=== PATIENT | male | born 1965 | race Caucasian/White ===

== ENCOUNTER 2018-09-29 06:29 | Emergency (ER) | payer OTHER, SELFPAY ==
[2018-09-29 06:31] VITALS: BP 133/90; PULSE 73; RESP 18; TEMP 35.6; O2SAT 100; BMI 27.0
--- NOTE | 2018-09-29 06:50 | ED.DCSUM_ITS ---
- ER Visit Summary Date of Service: 09/29/18 Chief Complaint: Back pain History of Present Illness: The patient is a 52 M who presents with left lower back pain that has been getting worse over the past 4 days. Patient denies any specific trauma or injury. Patient denies any bowel or bladder changes. Pat svitlanant denies any saddle anesthesia. Patient does admit to some pain radiating down his left leg and some tingling. Patient denies any weakness. Patient states the pain is worse with ambulation and with laying flat. Patient states she has been taking Aleve with no relief. Physical Examination: Vital signs are stable. Patient is afebrile. Patient is in no acute distress. Musculoskeletal exam reveals tenderness over the left lower lumbar paraspinal muscles. There is tenderness over the sciatic notch. There is no bony crepitance or step-off. There is no midline tenderness. Range of motion was limited in all motions of the lumbar spine secondary to pain. Strength is 5/5 bilaterally in lower extremities. There are no sensory deficits noted. Deep tendon reflexes are 2+/4 bilaterally. Emergency Department Course and Treatment: Patient was given prescriptions for meloxicam and Valium. Patient was instructed to use ice to the area. Patient was instructed to follow-up with his primary care physician in 3 to 5 days. Patient understood and was agreeable with the plan. All questions were answered. Disposition: Discharge home Impression: Sciatica This note was generated with [employer] dictation software. It may contain incorrect words, spelling, and punctuation that were not noted in review of the chart prior to signing ED Disposition - Plan for ED Patient: Disposition: Home or Assisted Living Diagnosis: Sciatica of left side Instructions: BACK PAIN w/ SCIATICA Prescriptions: Meloxicam 15 mg PO DAILY PRN PRN #20 tab PRN Reason: Pain Transmission Status: Pending to [id number] Diazepam [Valium] 5 mg PO Q8 PRN #10 tablet PRN Reason: Muscle Spasm Transmission Status: Received by [facility]/pharmacy #[id number] Referrals: Justin Navarro III, MD [Primary Care Provider] - 3-5 Days
== END 2018-09-29 07:26 | disposition home or self-care (01) ==
PROVIDERS: Emergency Provider Emergency Medicine; Family Provider Family Medicine; PCP Family Medicine
DX: M54.42 Lumbago with sciatica, left side (principal); Z79.899 Other long term (current) drug therapy
CPT/HCPCS: 99282

== ENCOUNTER 2019-06-09 14:35 | Emergency (ER) | payer OTHER, SELFPAY ==
[2019-06-09 14:36] VITALS: BP 151/88; PULSE 82; RESP 20; TEMP 36.1; O2SAT 100; BMI 28.3
--- NOTE | 2019-06-09 15:11 | ED.DCSUM_ITS ---
History of Present Illness Chief Complaint: Nausea/Vomiting/Diarrhea Detail of Chief Complaint: general illness Informant: Patient Onset: Weeks - 1 Context: Gradual Onset Timing: Continuous Quality: malaise, et al -- see below Location: generalized Current Severity: Severe Maximum Severity: Severe Worsened by: - - nothing Relieved by: - - nothing Associated Symptoms: Headache - gone at this time, Nonproductive cough, - - diarrhea, mild and nonbloody. 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 He has had no known definite exposure with that or other illness. He has been going to work, however. He states he has called his doctor's office several times and says that they told him to come to the ER, but thinks they also put an order in for the COVID test, but states that he feels too bad to get to [place] for it. He has been feeling very malaised. He states he is so out of energy that he cannot walk very far, however he does not get dyspneic with exertion and has not experienced chest symptoms. Patient presents during the national coronavirus emergency/global pandemic, just after [place] started making plans to open businesses, but he has been working because his business has been deemed essential. - Past Medical History (1) Hyperlipidemia Status: Chronic Past Medical History - Allergies and Home Meds Allergies/Adverse Reactions: Allergies Penicillins Adverse Reaction (Verified 06/09/19 14:36) [facility] Primary Care Physician: Justin Navarro III, MD [Primary Care Provider] - 1-2 Days if not improving (or return to ER if feeling worse, especially if short of breath, or if your oxygen levels go below 91%, if you are able to check it at home) Smoking Status: Never smoker Review of Systems General: Reports: Chills, Malaise. Denies: Fever, Sweats Eyes: Denies: Visual changes - bilaterally, Diplopia ENT: Denies: Bilateral ear pain, Rhinorrhea, Sore throat Cardiovascular: Denies: Chest pain, Palpitations Respiratory: Reports: Cough. Denies: Dyspnea, Sputum, Dyspnea on exertion, Orthopnea Gastrointestinal: Reports: Diarrhea. Denies: Abdominal pain, Nausea, Vomiting, Melena, Hematochezia Genitourinary: Denies: Dysuria, Hematuria, Frequency Musculoskeletal: Denies: Neck pain, Back pain, Swelling, Extremity Pain Skin: Denies: Rash, Wounds Neurological: Reports: Headache. Denies: Weakness - nothing focal, neurologically, Numbness Psych: Reports: Anxiety - I'm nervous that I have COVID. Denies: Suicidal thoughts Endocrine: Denies: Polyuria, Polydipsia Hematologic: Denies: Easy bruising, Easy bleeding, Lymphadenopathy Physical Exam Vital Signs/Narrative: Vital Signs Temp Pulse Resp BP Pulse Ox 06/09/19 14:36 97 F L 82 20 H 151/88 H 100 Inital Vital Signs reviewed: Yes General: Well nourished, Well developed, - - NAD Head: Normocephalic, Atraumatic. Negative for: Sinus Tenderness Eyes: Perrl, EOMI Ears: Normal external canal, TM's clear Nose: Normal Inspection, No Rhinorrhea Mouth/Throat: Normal Inspection, No Posterior Erythema, Airway Patent Neck: Supple, Nontender, No Lymphadenopathy, No Meningismus Cardiovascular: Regular rate, Regular rhythm, No murmurs. Negative for: Tachycardia Respiratory: No distress, CTA bilaterally, Chest nontender Abdomen: Soft, Nontender, Nondistended, Normal bowel sounds Back: Nontender, Normal Inspection. Negative for: CVA tenderness Extremities: Nontender, No edema. Negative for: Calf Tenderness Skin: Normal color, No rash, No Trauma Neurological: Alert, Oriented x3, Cranial nerves II-XII grossly intact, Normal Strength, Normal Sensation, Normal Gait Psychological: - - very anxious Diagnostic/Tx/Re-eval Impressions Chest X-Ray 06/09/19 15:30 IMPRESSION: Findings suggestive of linear atelectasis at the lung bases. Electronically Signed: Ronald Richard, at 16:03 EDT , Service support , 06/09/19 15:30 Chest 1 View (Portable) [RAD] Stat 06/09/19 15:25 Mucosa - Nasopharyngeal Influenza Types A,B Direct FA ([facility]) - Final Laboratory Results 06/09/19 06/09/19 06/09/19 15:40 15:40 15:54 WBC 5.3 RBC 5.10 Hgb 15.4 Hct 44.4 MCV 87.1 MCH 30.2 MCHC 34.7 RDW Std Deviation 41.3 RDW Coeff of Anabell 13.0 Plt Count 198 MPV 10.3 Immature Gran % (Auto) 0.400 Neut % (Auto) 51.7 Lymph % (Auto) 39.2 [place] % (Auto) 8.1 Eos % (Auto) 0.4 Baso % (Auto) 0.2 Absolute Neuts (auto) 2.8 Absolute Lymphs (auto) 2.08 Nucleated RBC % 0 Sodium 136 Potassium 3.9 Chloride 105 Carbon Dioxide 24.0 Anion Gap 7 BUN 9 Creatinine 1.02 Estim Creat Clear Calc 79.17 Est GFR (MDRD) Af Amer 97 Est GFR (MDRD) Non-Af 80 BUN/Creatinine Ratio 8.8 L Glucose 91 Calcium 8.4 L Troponin I < 0.015 Urine Color Yellow Urine Clarity Sl. Cloudy Urine pH 7.0 Ur Specific [place] 1.005 Urine Protein Negative Urine Glucose (UA) Normal Urine Ketones 5 H Urine Occult Blood Negative Urine Nitrite Negative Urine Bilirubin Negative Urine Urobilinogen Normal Ur Leukocyte Esterase Negative Urine RBC 0 SEEN Urine WBC 0 SEEN Ur Squamous Epith Cells 0-5 SEEN Urine Bacteria 0 SEEN Urine Mucus 0 SEEN - Medical Decision Making Work-up is very reassuring, however, most consistent with a coronavirus/COVID-19 infection given his low-normal white blood count, lack of a left shift, and symptoms in context of a negative influenza test. Luckily, at this time his chest x-ray shows no acute findings of infection, and his pulse oximetry is 100% on room air. The rest of his vital signs are reassuring as well. I discussed all this with the patient, in addition to the fact that I do suspect that he has the infection. I called the [facility] laboratory, as we still need permission on every patient to obtain testing given limited testing specimens and swabs, and the fact that our facility does not have the capability of performing testing onsite at this time. At this time, he does not meet criteria for testing at the [facility] lab. I discussed with the patient's PCP Dr. Navarro, he states that at [facility] they do have the ability to test on site, but they are strictly using the criteria laid out by the [place] Department of Health and so will not approve testing for him either. I apologized to the patient that I am not able to obtain an outpatient test for him at this time, nor does he meet criteria to be admitted at this time, but reassured him that right now he appears to be tolerating the infection well from a physiologic/oxygenation standpoint, and is doing well enough to stay at home. I recommend quarantining himself away from family members, and not going back to work. We discussed reasons to return to the hospital including dyspnea which he does not have right now. I also advised to try to secure a small finger pulse oximeter that is obtainable on line if/where available, so that he could screen for hypoxemia since some patients have become hypoxic prior to becoming dyspneic. His PCP was in agreement with this plan, and currently in [place], infectious disease does not recommend or allow outpatient treatment with a azithromycin or Plaquenil in this patient's case and being a stable outpatient. I discussed that with the patient as well. At this time all questions at the [facility] were answered and he is comfortable going home. ED Disposition - Plan for ED Patient: Disposition: Home or Assisted Living Diagnosis: Suspected COVID-19 virus infection Instructions: ED URI Viral Referrals: Justin Navarro III, MD [Primary Care Provider] - 1-2 Days if not improving (or return to ER if feeling worse, especially if short of breath, or if your oxygen levels go below 91%, if you are able to check it at home) Additional Instructions: Try to see if you can obtain/purchase a finger pulse oximeter, to check your pulse ox at home periodically/daily.
--- NOTE | 2019-06-09 15:30 | RAD_ITS ---
STUDY: X-RAY CHEST REASON FOR EXAM: Male, 53 years old. N/D, WILDE, NIGHT SWEATS BUT NO FEVER, COUGH X 1 WEEK. TECHNIQUE: Single AP portable view of the chest. COMPARISON: None. FINDINGS: Mild increased linear markings at the lung bases suggestive of a linear atelectasis. There is no demonstrated pleural abnormality. Normal size heart. Normal mediastinum and alan. Normal visualized pulmonary arteries. Normal visualized aortic arch and descending thoracic aorta. Normal visualized thoracic spine. Normal visualized ribs, clavicles, and shoulders. There is no demonstrated abnormality of the visualized soft tissue structures of the upper abdomen. RAD/Chest 1 View (Portable) IMPRESSION: Findings suggestive of linear atelectasis at the lung bases. Electronically Signed: Ronald Richard, at 16:03 EDT , Service support ,
[2019-06-09] MEDS: 0.9% Normal Saline 1,000 ML 999 ML IV (15:34)
[2019-06-09 15:44] LABS: Absolute Lymphocyte Count 2.08 X10^3/uL (0.83-4.51); Absolute Neutrophil Count 2.8 X10^3/uL (2.0-7.7); Basophil# 0.01 X10^3/uL; Basophil% 0.2 % (0-1); Eosinophil# 0.02 X10^3/uL; Eosinophils% 0.4 % (0-5); Hematocrit 44.4 % (40-54); Hemoglobin 15.4 g/dL (13.0-16.5); Lymphocyte # 2.08 X10^3/ul (4.0); Lymphocyte % 39.2 % (19-41); Mean Corp Hgb Conc 34.7 g/dL (32-36); Mean Corpuscular Hgb 30.2 pg (27.0-32.0); Mean Corpuscular Volume 87.1 fL (80-94); Mean Platelet Vol. 10.3 fl (6.2-12.0); Monocyte# 0.43 X10^3/uL; Monocyte% 8.1 % (0-10); NRBC Flagged by Analyzer 0 % (0-5); Neutrophil # 2.75 X10^3/uL (2.7-7.7); Neutrophil % 51.7 % (47-70); Platelet Count 198 K/mm3 (150-450); RBC Distribution Width SD 41.3 fl (35.1-43.9); White Blood Count 5.3 K/mm3 (4.4-11.0)
[2019-06-09 15:58] LABS: Bacteria 0 SEEN /hpf (None Seen); Mucous, Urine 0 SEEN /hpf (<or=2+); Red Blood Cells-Urine 0 SEEN /hpf (0-5); White Blood Cells 0 SEEN /hpf (0-5)
[2019-06-09 16:02] LABS: Color, Urine Yellow (Yellow); Glucose, Dipstick Normal (Normal); Ketone-Dipstick 5 mg/dl (Negative); Leukocyte Esterase-Dipstick Negative /ul (Negative); Nitrite-Dipstick Negative (Negative); Occult Blood-Urine Negative /ul (Negative); Protein-Dipstick Negative (Negative); Specific Gravity, Urine 1.005 (1.002-1.030); Urine Bilirubin Dipstick Negative (Negative); Urine Clarity Sl. Cloudy (Clear); Urine Urobilinogen Normal (Normal)
[2019-06-09 16:05] LABS: BUN 9 mg/dL (7-18); Creatinine, Serum 1.02 mg/dL (0.70-1.30); Estimated Creatinine Clearance 79.17 ml/min; Glucose 91 mg/dL (74-106)
[2019-06-09 16:06] LABS: Anion Gap 7 (5-15); BUN/Creat Ratio 8.8 RATIO (10-20); Calcium,Total 8.4 mg/dL (8.5-10.1); Chloride 105 mmol/L (98-107); EST Glomerular Filtration Rate 80 mL/min (>60); Est Glom Filt Rate - Afr Amer 97 mL/min (>60); Potassium 3.9 mmol/L (3.5-5.1); Sodium Level 136 mmol/L (136-145)
[2019-06-09 16:09] LABS: Squamous Epithelial Cells - UA 0-5 SEEN /hpf (0-5)
[2019-06-09 17:33] VITALS: RESP 18
== END 2019-06-09 17:36 | disposition home or self-care (01) ==
LOC: ED 17:14
PROVIDERS: Emergency Provider Emergency Medicine; PCP Family Medicine
DX: R11.2 Nausea with vomiting, unspecified (principal); R19.7 Diarrhea, unspecified; Z20.828 Contact with and (suspected) exposure to other viral communicable diseases; R53.81 Other malaise; E78.5 Hyperlipidemia, unspecified; Z88.0 Allergy status to penicillin
CPT/HCPCS: 71045; 80048; 81001; 84484; 85025; 87804; 96360; 99283; J7030; A4216

== ENCOUNTER 2019-06-11 01:32 | Emergency (ER) | payer OTHER, SELFPAY ==
[2019-06-11 01:33] VITALS: BP 109/76; PULSE 78; RESP 20; TEMP 37; O2SAT 96; BMI 28.1
[2019-06-11 01:36] VITALS: BP 109/76; PULSE 78; RESP 20; TEMP 37; O2SAT 96
--- NOTE | 2019-06-11 01:54 | ED.DCSUM_ITS ---
History of Present Illness Chief Complaint: Fever Detail of Chief Complaint: Multiple complaints Informant: Patient Current Severity: Moderate Maximum Severity: Moderate Narrative: Patient presents with nausea and diarrhea for the past week or so. 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 Patient was seen in the ER on the fourth with reassuring labs. Patient returns again today state he does not feel better and today developed a fever to 101. He does voices frustration that he is not feeling better when he has been sick for nearly 2 weeks. - Past Medical History (1) Hyperlipidemia Status: Chronic Past Medical History - Allergies and Home Meds Allergies/Adverse Reactions: Allergies Penicillins Adverse Reaction (Verified 06/09/19 14:36) Hives Primary Care Physician: Justin Navarro III, MD [Primary Care Provider] - 1 Week Prior records reviewed: Yes Lives: Spouse/ Significant Other Smoking Status: Former smoker Review of Systems General: Reports: Fever, Sweats Eyes: Denies: Visual changes - bilaterally ENT: Denies: Bilateral ear pain Cardiovascular: Denies: Chest pain, Palpitations Respiratory: Reports: Dyspnea. Denies: Cough - Mild shortness of breath Gastrointestinal: Reports: Nausea, Diarrhea. Denies: Abdominal pain, Vomiting Musculoskeletal: Reports: Myalgias Skin: Denies: Rash Neurological: Denies: Headache Hematologic: Denies: Easy bruising, Easy bleeding Allergy: Denies: Uticaria Physical Exam Vital Signs/Narrative: Vital Signs Temp Pulse Resp BP Pulse Ox 06/11/19 01:36 98.6 F 78 20 H 109/76 96 06/11/19 01:33 98.6 F 78 20 H 109/76 96 Inital Vital Signs reviewed: Yes General: Well nourished, Well developed Head: Normocephalic ENT: Moist mucous membranes Neck: Supple Cardiovascular: Regular rate, Regular rhythm Respiratory: No distress, CTA bilaterally Abdomen: Soft, Nontender, Normal bowel sounds Extremities: Nontender Skin: Normal color Neurological: Alert, Oriented x3 Psychological: - - Anxious Diagnostic/Tx/Re-eval Impressions Chest X-Ray 06/11/19 02:15 IMPRESSION: Interval development of bilateral pulmonary opacities suspicious for mild atypical/viral pneumonia. Electronically Signed: Tello Jett, at 2:32 EDT Tel , Service support , 06/11/19 02:15 Chest 1 View (Portable) [RAD] Stat Laboratory Results 06/11/19 06/11/19 02:05 02:05 WBC 5.5 RBC 4.83 Hgb 14.6 Hct 42.9 MCV 88.8 MCH 30.2 MCHC 34.0 RDW Std Deviation 42.8 RDW Coeff of Anabell 13.1 Plt Count 220 MPV 10.2 Immature Gran % (Auto) 0.500 Neut % (Auto) 54.0 Lymph % (Auto) 36.4 [place] % (Auto) 8.7 Eos % (Auto) 0.2 Baso % (Auto) 0.2 Absolute Neuts (auto) 3.0 Absolute Lymphs (auto) 2.01 Nucleated RBC % 0 Sodium 135 L Potassium 3.5 Chloride 106 Carbon Dioxide 23.0 Anion Gap 6 BUN 10 Creatinine 1.08 Estim Creat Clear Calc 74.77 Est GFR (MDRD) Af Amer 91 Est GFR (MDRD) Non-Af 75 BUN/Creatinine Ratio 9.3 L Glucose 100 Calcium 8.0 L - Medical Decision Making Patient was given Zofran to help with nausea and 15 mg of IV Toradol. On repeat evaluation nausea is improved. Patient's O2 sat is 94% at the time of my re- eval. Test results are discussed with him. I did advise him that his blood work is remaining normal, however his x-ray does show mild viral pneumonia at this time. I did discuss with him that his oxygen saturation is still within normal limits. I did encourage him to get a pulse ox for home to closely monitor his oxygen level. I do suspect the patient likely does have COVID-19. At this time he does not meet criteria for testing and testing at this time will not change our treatment. Patient will be given a prescription for Zofran to help with nausea at home. ED Disposition - Plan for ED Patient: Disposition: Home or Assisted Living Diagnosis: Viral pneumonia, Suspected COVID-19 virus infection Instructions: ED Viral Syndrome Prescriptions: Ondansetron [Zofran Odt] 4 mg PO Q8H PRN PRN #10 tab PRN Reason: Nausea Prescription Printed Referrals: Justin Navarro III, MD [Primary Care Provider] - 1 Week
[2019-06-11] MEDS: Ketorolac 15 MG/ML Vial IV (02:07)
[2019-06-11] MEDS: Ondansetron 4 MG/2 ML Vial IV (02:07)
--- NOTE | 2019-06-11 02:15 | RAD_ITS ---
STUDY: X-RAY CHEST REASON FOR EXAM: Male, 53 years old. Shortness of breath, fever, sweats and chills. TECHNIQUE: AP portable upright COMPARISON: 06/09/2019 at 4:33 PM FINDINGS: Interval development of peripheral groundglass densities in the mid and lower lungs bilaterally. No apparent consolidation, pneumothorax, or pleural effusion. Heart size normal. No concerning mediastinal or hilar lesions. No acute osseous abnormality. No evidence of free air under the diaphragm. RAD/Chest 1 View (Portable) IMPRESSION: Interval development of bilateral pulmonary opacities suspicious for mild atypical/viral pneumonia. Electronically Signed: Tello Jett, at 2:32 EDT Tel , Service support ,
[2019-06-11 02:21] LABS: Absolute Lymphocyte Count 2.01 X10^3/uL (0.83-4.51); Basophil# 0.01 X10^3/uL; Basophil% 0.2 % (0-1); Eosinophil# 0.01 X10^3/uL; Eosinophils% 0.2 % (0-5); Hematocrit 42.9 % (40-54); Hemoglobin 14.6 g/dL (13.0-16.5); Lymphocyte # 2.01 X10^3/ul (4.0); Lymphocyte % 36.4 % (19-41); Mean Corpuscular Hgb 30.2 pg (27.0-32.0); Mean Corpuscular Volume 88.8 fL (80-94); Mean Platelet Vol. 10.2 fl (6.2-12.0); Monocyte# 0.48 X10^3/uL; Monocyte% 8.7 % (0-10); NRBC Flagged by Analyzer 0 % (0-5); Neutrophil # 2.98 X10^3/uL (2.7-7.7); Platelet Count 220 K/mm3 (150-450); RBC Distribution Width CV 13.1 % (11.6-14.6); RBC Distribution Width SD 42.8 fl (35.1-43.9); Red Blood Count 4.83 M/mm3 (4.6-6.2); White Blood Count 5.5 K/mm3 (4.4-11.0)
[2019-06-11 02:30] VITALS: BP 93/68; PULSE 69; RESP 22; TEMP 37.1; O2SAT 93
[2019-06-11 02:32] LABS: Anion Gap 6 (5-15); BUN 10 mg/dL (7-18); BUN/Creat Ratio 9.3 RATIO (10-20); Chloride 106 mmol/L (98-107); Creatinine, Serum 1.08 mg/dL (0.70-1.30); EST Glomerular Filtration Rate 75 mL/min (>60); Est Glom Filt Rate - Afr Amer 91 mL/min (>60); Estimated Creatinine Clearance 74.77 ml/min; Glucose 100 mg/dL (74-106); Potassium 3.5 mmol/L (3.5-5.1); Sodium Level 135 mmol/L (136-145)
[2019-06-11 03:10] VITALS: BP 93/68; PULSE 71; RESP 18; TEMP 37.1; O2SAT 94
--- NOTE | 2019-06-11 03:19 | ED.RN ---
Offered to call and update her with discharge information and answer questions. PT said he would call her himself. Pending prescription from pharmacy.
== END 2019-06-11 03:20 | disposition home or self-care (01) ==
PROVIDERS: Emergency Provider Emergency Medicine; PCP Family Medicine
DX: J12.9 Viral pneumonia, unspecified (principal); R19.7 Diarrhea, unspecified; R11.0 Nausea; E78.5 Hyperlipidemia, unspecified; Z88.0 Allergy status to penicillin; Z87.891 Personal history of nicotine dependence
CPT/HCPCS: 71045; 80048; 85025; 96374; 96375; 99284; A4216; J2405

== ENCOUNTER 2020-11-28 17:11 | Inpatient (IN) | payer OTHER, SELFPAY ==
[2020-11-28 17:12] VITALS: BP 134/88; PULSE 104; RESP 20; TEMP 36.3; O2SAT 99; BMI 27.3
--- NOTE | 2020-11-28 17:29 | CT_ITS ---
EXAM: CT Abdomen and Pelvis With Intravenous Contrast CLINICAL INDICATION: 54 years old, Male; abdominal pain -- IV PO Contrast TECHNIQUE: Helically acquired images were obtained of the abdomen and pelvis with intravenous contrast. This CT exam was performed using one or more of the following dose reduction techniques: automated exposure control, adjustment of the mA and/or kV according to patient size, and/or use of iterative reconstruction technique. This report was created using [employer]™ Audio report generation technology. CONTRAST: Oral and amp; IV Gastrografin and amp; 100mL Isovue-300 COMPARISON: None. FINDINGS: Lower thorax: Linear atelectasis or fibrosis in the lung bases. No cardiomegaly. No significant pericardial effusion. ABDOMEN: Liver: Low attenuation foci in the liver some of which are due to cysts. Others are too small to characterize. Gallbladder and bile ducts: Unremarkable. No calcified gallstones. No gallbladder distention or wall edema. No intra- or extrahepatic biliary ductal dilation. Pancreas: Unremarkable. No focal cystic or solid mass. Spleen: Unremarkable. Normal size without focal cystic or solid mass. Adrenals: Unremarkable. No nodules. Kidneys and ureters: Unremarkable. Normal renal size and position. No hydronephrosis. Stomach and bowel: There is fluid in the colon suggesting diarrhea. Mucosal thickening in the ileum suggesting ileitis. This appears to be causing a partial mechanical obstruction of the small bowel with oral contrast seen only to the level of the mid ileum. Scattered diverticula in the colon. No diverticulitis. PELVIS: Appendix: Normal appendix. Bladder: Unremarkable. Reproductive: Unremarkable as visualized. No mass. ABDOMEN and PELVIS: Intraperitoneal space: Trace free fluid in the pelvis. No free air. Bones/joints: Unremarkable. No suspicious lytic or blastic abnormality. Soft tissues: Unremarkable. No discrete abdominal or pelvic wall hernia. Vasculature: Unremarkable. Abdominal aorta is non-dilated. Lymph nodes: Unremarkable. No enlarged lymph nodes. CT/Abdomen/Pelvis WITH Contrast IMPRESSION: 1. There is fluid in the colon suggesting diarrhea. 2. Mucosal thickening in the ileum suggesting ileitis. This appears to be causing a partial mechanical obstruction of the small bowel with oral contrast seen only to the level of the mid ileum. X-ray follow-up may be helpful. Electronically Signed: Antony Drake MD at 20:32 EDT Tel , Service support ,
--- NOTE | 2020-11-28 17:37 | EDS_ITS ---
HPI History of Present Illness Chief Complaint: Abd Pain Informant: patient and spouse/S.O. Narrative Narrative: 54-year-old male presented to the emergency department with abdominal and back pain. Patient states that he went to bed last night feeling okay. He woke around 4 this morning with a generalized mid to upper abdominal discomfort and some lower back discomfort. It was not that bad so he went and tried to do some chores. Patient notes he is developed chills and nausea and worsening pain. He states he feels bloated. He had several bowel movements today that have been formed. He denies any urinary symptoms. No prior surgeries. [facility] Medical History (Updated 11/28/20 @ 20:[address] Roge Cisneros DO) Hyperlipidemia Home Medications simvastatin 40 mg PO DAILY 09/29/18 [History Last Taken Unknown] Allergy/AdvReac Type Severity Reaction Status Date / Time Penicillins AdvReac Hives Verified 11/28/20 17:12 Surgical History no surgical history no surgical history Social History (Updated 11/28/20 @ 17:[address] Roge Cisneros DO) Smoking Status: Unknown if ever smoked substance use type: does not use ROS ROS ED Constitutional Constitutional ED: Reports chills; Denies fever(s) or weight loss Eyes Eyes: Denies change in vision or diplopia ENT ENT ED: Denies ear pain, rhinorrhea or sore throat Cardiovascular Cardiovascular: Denies chest pain, orthopnea, palpitations or racing heartbeat Respiratory/Chest Respiratory/Chest: Denies cough, dyspnea or orthopnea Gastrointestinal Gastrointestinal: Reports abdominal pain and nausea; Denies constipation, diarrhea or vomiting Genitourinary Genitourinary ED: Denies dysuria, hematuria or urinary frequency Musculoskeletal Musculoskeletal: Reports back pain; Denies arthralgias or myalgias Integumentary Denies abscess or rash Neurologic Neurologic: Denies headache(s) or weakness Psychiatric Psychiatric: Denies anxiety, depression, suicidal ideation or suicidal thoughts Endocrine Endocrinology: Denies polydipsia, polyphagia or polyuria Allergic/Immunologic Allergic/Immunologic ED: Denies mouth swelling, tongue swelling or urticaria EXAM Physical Exam Const Vital Signs: 11/28/20 17:12 11/28/20 19:14 Temperature 97.3 F L 99.9 F H Temperature Source Temporal Temporal Pulse Rate 104 H 86 Respiratory Rate 20 H 17 Blood Pressure 134/88 H 117/82 H Blood Pressure Mean 103 93 Pulse Ox 99 94 Oxygen Delivery Method Room Air Room Air Positive well nourished and well developed General Appearance ED: well developed HEENT Reports normocephalic, head/scalp atraumatic, TM's clear and moist mucous membranes Negative for trauma Tympanic Membrane ED: Yes TM's clear Eyes PERRL and EOMs intact bilaterally Neck no lymphadenopathy, supple and no JVD Resp normal respiratory effort and clear to auscultation bilaterally Cardio regular rate, regular rhythm and no murmurs GI non-tender Inspection: abdominal distention Auscultation: normoactive bowel sounds Palpation: soft and tender; Negative for guarding or rebound tenderness present Back/Spine no CVA tenderness and normal ROM Lumbar Spine / Lower Back: Negative for lumbar spinal tenderness Extremity normal to inspection General Extremety ED: Negative for edema General Extremity: Negative for edema Neuro oriented x3 and CN's II-XII intact bilaterally Sensorium / Orientation: alert Motor Exam: strength 5/5 throughout Psych mental status grossly normal Mood & Affect: Negative for depressed or tearful Skin no rashes or lesions noted and no wounds MDM MDM MDM Narrative Medical decision making narrative: Patient's white count 16.7. CMP essentially negative lipase [address] the abdomen pelvis with oral and IV contrast was obtained. This demonstrated fluid in the colon there is mucosal thickening in the ileum suggestive of ileitis. This appears to be causing a partial mechanical obstruction of the small bowel with oral contrast only seen to the level of the mid ileum. The stomach does appear to be swollen with a significant bout of food particles in it. Patient received IV fluids morphine and Zofran. Plan will be discussed with the hospitalist and admission. Lab Data Attestation: I reviewed the patient's lab results. Labs: Laboratory Results - last 24 hr 11/28/20 11/28/20 11/28/20 17:54 17:54 17:56 WBC 16.7 H RBC 5.15 Hgb 15.9 Hct 45.6 MCV 88.5 MCH 30.9 MCHC 34.9 RDW Std Deviation 43.8 RDW Coeff of Anabell 13.3 Plt Count 390 MPV 9.5 Immature Gran % (Auto) 0.500 Neut % (Auto) 69.3 Lymph % (Auto) 21.7 [place] % (Auto) 7.1 Eos % (Auto) 0.9 Baso % (Auto) 0.5 Absolute Neuts (auto) 11.6 H Absolute Lymphs (auto) 3.63 Nucleated RBC % 0 Sodium 141 Potassium 3.7 Chloride 104 Carbon Dioxide 27.0 Anion Gap 10 BUN 13 Creatinine 1.02 Estim Creat Clear Calc 80.87 Est GFR (MDRD) Af Amer 97 Est GFR (MDRD) Non-Af 80 BUN/Creatinine Ratio 12.7 Glucose 100 Calcium 9.9 Total Bilirubin 0.70 AST 27 ALT 34 Alkaline Phosphatase 93 Total Protein 8.6 H Albumin 4.3 Globulin 4.3 H Albumin/Globulin Ratio 1.0 Lipase 91 Urine Color Yellow Urine Clarity Clear Urine pH 7.0 Ur Specific [place] 1.010 Urine Protein Negative Urine Glucose (UA) Normal Urine Ketones 15 H Urine Occult Blood Negative Urine Nitrite Negative Urine Bilirubin Negative Urine Urobilinogen Normal Ur Leukocyte Esterase Negative Urine RBC 0-5 SEEN Urine WBC 0-5 SEEN Ur Squamous Epith Cells 0 SEEN Urine Bacteria 0 SEEN Urine Mucus 0 SEEN Radiography Diagnostic Testing: Clinical Impression(s) from Imaging Studies Abdomen/Pelvis CT 11/28/20 17:29 IMPRESSION: 1. There is fluid in the colon suggesting diarrhea. 2. Mucosal thickening in the ileum suggesting ileitis. This appears to be causing a partial mechanical obstruction of the small bowel with oral contrast seen only to the level of the mid ileum. X-ray follow-up may be helpful. Electronically Signed: Antony Drake MD at 20:32 EDT Tel , Service support , Discharge Plan Triage Chief Complaint: Abd Pain ED Provider: Roge Cisneros Dx/Rx/DC Orders Clinical Impression: Ileitis, Partial obstruction of small intestine Prescriptions: No Action simvastatin 40 MG tablet 40 mg PO DAILY RF: 0 Primary Care Provider: Care Physician,No Primary Referrals: Care Physician,No Primary [Primary Care Provider] - Disposition Disposition: [facility]
[2020-11-28] MEDS: Morphine 4 MG/ML Syringe IV ×2 (17:51→23:05)
[2020-11-28] MEDS: Ondansetron 4 MG/2 ML Vial IV ×2 (17:52→21:53)
[2020-11-28] MEDS: 0.9% Normal Saline 1,000 ML 200 ML IV (18:03)
[2020-11-28 18:04] LABS: Bacteria 0 SEEN /hpf (None Seen); Mucous, Urine 0 SEEN /hpf (<or=2+); Squamous Epithelial Cells - UA 0 SEEN /hpf (0-5)
[2020-11-28 18:07] LABS: Absolute Lymphocyte Count 3.63 X10^3/uL (0.83-4.51); Absolute Neutrophil Count 11.6 X10^3/uL (2.0-7.7); Basophil# 0.08 X10^3/uL; Basophil% 0.5 % (0-1); Eosinophil# 0.15 X10^3/uL; Eosinophils% 0.9 % (0-5); Hematocrit 45.6 % (40-54); Hemoglobin 15.9 g/dL (13.0-16.5); Lymphocyte # 3.63 X10^3/ul (0.83-4.51); Lymphocyte % 21.7 % (19-41); Mean Corp Hgb Conc 34.9 g/dL (32-36); Mean Corpuscular Hgb 30.9 pg (27.0-32.0); Mean Corpuscular Volume 88.5 fL (80-94); Mean Platelet Vol. 9.5 fl (6.2-12.0); Monocyte# 1.19 X10^3/uL; Monocyte% 7.1 % (0-10); NRBC Flagged by Analyzer 0 % (0-5); Neutrophil # 11.56 X10^3/uL (2.7-7.7); Neutrophil % 69.3 % (47-70); Platelet Count 390 K/mm3 (150-450); RBC Distribution Width CV 13.3 % (11.6-14.6); RBC Distribution Width SD 43.8 fl (35.1-43.9); Red Blood Count 5.15 M/mm3 (4.6-6.2); White Blood Count 16.7 K/mm3 (4.4-11.0)
[2020-11-28 18:15] LABS: Color, Urine Yellow (Yellow); Glucose, Dipstick Normal (Normal); Ketone-Dipstick 15 mg/dl (Negative); Leukocyte Esterase-Dipstick Negative /ul (Negative); Nitrite-Dipstick Negative (Negative); Occult Blood-Urine Negative /ul (Negative); Protein-Dipstick Negative (Negative); Urine Bilirubin Dipstick Negative (Negative); Urine Clarity Clear (Clear); Urine Urobilinogen Normal (Normal)
[2020-11-28 18:27] LABS: AST(SGOT) 27 U/L (15-37); Alanine Aminotransfer ALT/SGPT 34 U/L (16-61); Albumin, Serum 4.3 g/dL (3.2-5.0); Alkaline Phosphatase 93 U/L (45-117); Anion Gap 10 (5-15); BUN 13 mg/dL (7-18); BUN/Creat Ratio 12.7 RATIO (10-20); Calcium,Total 9.9 mg/dL (8.5-10.1); Chloride 104 mmol/L (98-107); Creatinine, Serum 1.02 mg/dL (0.70-1.30); EST Glomerular Filtration Rate 80 mL/min (>60); Est Glom Filt Rate - Afr Amer 97 mL/min (>60); Estimated Creatinine Clearance 80.87 ml/min; Globulin 4.3 g/dL (2.2-4.2); Glucose 100 mg/dL (74-106); Lipase 91 U/L (73-393); Potassium 3.7 mmol/L (3.5-5.1); Protein, Total 8.6 g/dL (6.4-8.2); Sodium Level 141 mmol/L (136-145)
[2020-11-28 18:40] LABS: White Blood Cells 0-5 SEEN /hpf (0-5)
[2020-11-28 18:41] LABS: Red Blood Cells-Urine 0-5 SEEN /hpf (0-5)
[2020-11-28 19:14] VITALS: BP 117/82; PULSE 86; RESP 17; TEMP 37.7; O2SAT 94
--- NOTE | 2020-11-28 20:52 | PCM.HP.STD ---
HPI - General General Date of Admission: 11/28/20 Date of Service: 11/28/20 Chief Complaint: Abdominal pain HPI Narrative The patient is a 54 y/o M w/ PMHx: HLD who presents to the [facility] ED on 11/28/20 with history of eating the day prior with his at basal with onset at approximately 4 AM on day of presentation abdominal discomfort and dyspepsia with distention taking Tums and drinking water without marked improvement but able to eat breakfast consisting of sausage and gravy followed by at least 4 bowel movements during the day which he notes can be normal however his last 2 bowel moods were more soft and crumbly than normal and he had continuously worsening abdominal distention with decreased flatus rating his pain up to 10 out of 10, generalized across the belly and crampy in nature also prompting ED evaluation. His has been feeling well without any illness or self. He denies any recent fevers or chills prior. Work-up in the ED included T 99. 9, heart rate initially 104 with repeat 86, BP 134/88, respiratory rate 20, 99% on room air, CBC with WC 16.7, hemoglobin 15.9, platelets 390 with left shift, CMP unremarkable, lipase 91, urinalysis not marked appearing, CT abdomen and pelvis with fluid in the colon suggestive of diarrhea with mucosal thickening in the ileum suggesting ileitis causing a partial mechanical obstruction of the small bowel with oral contrast seen only to the level of the mid ileum. In the ED patient ministered Zofran, morphine and normal saline. [facility] Medical History (Updated 11/28/20 @ 22:[address] Marcela Delgado MD) Cigar smoker GERD (gastroesophageal reflux disease) Hyperlipidemia Home Medications simvastatin 40 mg PO DAILY 09/29/18 [History Last Taken Unknown] Allergy/AdvReac Type Severity Reaction Status Date / Time Penicillins AdvReac Hives Verified 11/28/20 17:12 Family History (Updated 11/28/20 @ 22:[address] Marcela Delgado MD) Mother Hypertension Father Diabetes Surgical History (Updated 11/28/20 @ 22:[address] Marcela Delgado MD) No history of previous surgery Surgical History no surgical history Social History (Updated 11/28/20 @ 22:[address] Marcela Delgado MD) household members: spouse Smoking Status: Current some day smoker tobacco type: cigars alcohol intake: current alcohol intake frequency: a few times a month substance use type: does not use ROS ROS Narrative Admission Review of Systems: CONSTITUTIONAL: No weight loss, fever, chills, + weakness or fatigue. HEENT: Eyes: No visual loss, blurred vision, double vision or yellow sclerae. Ears, Nose, Throat: No hearing loss, sneezing, congestion, runny nose or sore throat. SKIN: No rash or itching, lesions, wounds. CARDIOVASCULAR: No chest pain, chest pressure or chest discomfort, palpitations, edema, orthopnea, syncopal events. RESPIRATORY: No shortness of breath, cough or sputum, wheezing, hemoptysis. GASTROINTESTINAL: + anorexia, nausea without vomiting, soft stools but no specific diarrhea, abdominal pain and distention, No melena, BRBPR. GENITOURINARY: No dysuria, frequency, urgency or retention. NEUROLOGICAL: No headache, dizziness, syncope, paralysis, ataxia, numbness or tingling in the extremities, focal weakness, change in bowel or bladder control, seizure. MUSCULOSKELETAL: + muscle, back pain, joint pain or stiffness. HEMATOLOGIC: No anemia, bleeding or bruising. LYMPHATICS: No enlarged nodes. No history of splenectomy. PSYCHIATRIC: No history of depression or anxiety. ENDOCRINOLOGIC: No reports of sweating, cold or heat intolerance. No polyuria or polydipsia. ALLERGIES: No history of asthma, hives, eczema or rhinitis. Vital Signs Vital Signs Vital Signs: 11/28/20 17:12 11/28/20 19:14 Temperature 97.3 F L 99.9 F H Temperature Source Temporal Temporal Pulse Rate 104 H 86 Respiratory Rate 20 H 17 Blood Pressure 134/88 H 117/82 H Blood Pressure Mean 103 93 Pulse Ox 99 94 Oxygen Delivery Method Room Air Room Air Weight Weight: 185 lb Body Mass Index (BMI) 27.3 Physical Exam Narrative Physical Examination: General: Awake, alert, oriented x 3 and cooperative, seated upright in bed in no apparent distress. Skin: Normal color, normal turgor, no icterus, no cyanosis. HEENT: AT/NC, EOMI, PERRLA, MMM, no carotid bruits or JVD noted. Lungs: CTA bilaterally, moderate effort, mild decrease BL bases, no rales, ronchi or wheezing. Heart: Regular rate and rhythm; no gallop, rub audible. Abdomen: Soft, generalized discomfort with palpation diffusely, distended, absent bowel sounds, no obvious HSM. Normal BS, no HSM. Extremities: No cyanosis, clubbing, or edema. Neurological: Patient awake, alert, oriented x 3, cognitive function intact; pupils equally reactive to light and accommodation, cranial nerves II-XII grossly normal, moving all 4 extremities, no focal deficits, strength moderate to severely globally Mary secondary to acute presentation as noted. Psychiatric: Affect appears fatigued, uncomfortable, mildly anxious, no acute evidence of depressive feelings. Results Lab / Micro Data Result Diagrams: 11/28/20 17:54 11/28/20 17:54 Labs: Laboratory Results - last 24 hr 11/28/20 17:54: WBC 16.7 H, RBC 5.15, Hgb 15.9, Hct 45.6, MCV 88.5, MCH 30.9, MCHC 34.9, RDW Std Deviation 43.8, RDW Coeff of Anabell 13.3, Plt Count 390, MPV 9.5, Immature Gran % (Auto) 0.500, Neut % (Auto) 69.3, Lymph % (Auto) 21.7, [place] % (Auto) 7.1, Eos % (Auto) 0.9, Baso % (Auto) 0.5, Absolute Neuts (auto) 11.6 H, Absolute Lymphs (auto) 3.63, Nucleated RBC % 0 11/28/20 17:54: Sodium 141, Potassium 3.7, Chloride 104, Carbon Dioxide 27.0, Anion Gap 10, BUN 13, Creatinine 1.02, Estim Creat Clear Calc 80.87, Est GFR (MDRD) Af Amer 97, Est GFR (MDRD) Non-Af 80, BUN/Creatinine Ratio 12.7, Glucose 100, Calcium 9.9, Total Bilirubin 0.70, AST 27, ALT 34, Alkaline Phosphatase 93, Total Protein 8.6 H, Albumin 4.3, Globulin 4.3 H, Albumin/Globulin Ratio 1.0, Lipase 91 11/28/20 17:56: Urine Color Yellow, Urine Clarity Clear, Urine pH 7.0, Ur Specific [place] 1.010, Urine Protein Negative, Urine Glucose (UA) Normal, Urine Ketones 15 H, Urine Occult Blood Negative, Urine Nitrite Negative, Urine Bilirubin Negative, Urine Urobilinogen Normal, Ur Leukocyte Esterase Negative, Urine RBC 0-5 SEEN, Urine WBC 0-5 SEEN, Ur Squamous Epith Cells 0 SEEN, Urine Bacteria 0 SEEN, Urine Mucus 0 SEEN Radiology Impression Abdomen/Pelvis CT 11/28/20 17:29 IMPRESSION: 1. There is fluid in the colon suggesting diarrhea. 2. Mucosal thickening in the ileum suggesting ileitis. This appears to be causing a partial mechanical obstruction of the small bowel with oral contrast seen only to the level of the mid ileum. X-ray follow-up may be helpful. Electronically Signed: Antony Drake MD at 20:32 EDT Tel , Service support , Assessment & Plan Assessment/Plan (1) Ileitis: (2) Partial obstruction of small intestine: PLAN: The patient is a 54 y/o M w/ PMHx: HLD who presents to the [facility] ED on 11/28/20 with history of eating the day prior with his at basal with onset at approximately 4 AM on day of presentation abdominal discomfort and dyspepsia with distention taking Tums without marked improvement and worsening through the day prompting eventual ED evaluation. 1. Abdominal pain, nausea, emesis w/ evidence acute ileitis with acute partial SBO: Will admit to medical surgical floor, continue general surgery consultation initiated per ED, maintain on IVFs, continue NGT to suction, strict I&Os, initiate IV flagyl and levaquin given allergy history, IV pain/anti-emetics PRN, serial KUB as needed to montior bowel function, Famotidine IV, maintain NPO on bowel rest, will request C. difficile, enteric pathogen if any ongoing diarrhea given history of CT findings although of note without any symptoms and recent similar food intake. 2. Hyperlipidemia: Will hold patient home statin therapy. 3. GERD: We will maintain on famotidine IV. 4. Tobacco Abuse: Encouraged cessation, patient smokes occasional cigar. 5. DVT prophylaxis: SCDs, Lovenox. Charges/Coding Visit Charges Inpatient E&M: 56298 Init Hosp L2
[2020-11-28 21:20] VITALS: BP 105/87; PULSE 100; PULSE 98; RESP 16; RESP 17; TEMP 37.4; O2SAT 95
[2020-11-28] MEDS: Lidocaine 4% 5 ML Ampul 2 ML INHALATION (21:34)
[2020-11-28] MEDS: Oxymetazoline 0.05% 1 SPRAY SPRAY.BTL 2 SPRAY NASAL (21:51)
--- NOTE | 2020-11-28 21:58 | RAD_ITS ---
EXAM: XR Abdomen, 1 View CLINICAL INDICATION: 54 years old, Male; NG Insertion TECHNIQUE: Frontal supine view of the abdomen/pelvis. This report was created using [employer] [facility] report generation technology. COMPARISON: None. FINDINGS: Lower thorax: Infiltrates in the lower lungs may be due to edema or pneumonia. Gastrointestinal tract: Unremarkable. Normal bowel gas pattern. Organs: Unremarkable as visualized. No organomegaly. No abnormal calcifications. Bones/joints: No acute pathology. Soft tissues: No acute pathology. Tubes, lines and devices: Enteric tube tip in the stomach. RAD/Abdomen Single View (Portable) IMPRESSION: Infiltrates in the lower lungs may be due to edema or pneumonia. Electronically Signed: Antony Drake MD at 23:02 EDT Tel , Service support ,
[2020-11-28 22:38] VITALS: BMI 28.4
[2020-11-28 22:47] LABS: Procalcitonin 0.07 ng/mL (0.00-0.09)
[2020-11-28 23:03] VITALS: BP 135/88; PULSE 88; RESP 16; TEMP 36.6; O2SAT 94
[2020-11-28] MEDS: 0.9% Saline Lock 10 ML Syringe IV (23:05)
[2020-11-28] MEDS: proCHLORPERazine 10 MG/2 ML Vial 5 MG IV (23:05)
[2020-11-28] MEDS: 0.9% Normal Saline 1,000 ML 125 ML IV (23:06)
[2020-11-28] MEDS: Famotidine 200 MG/20 ML MDV 20 MG in 0.9% Normal Saline (Pres. free 8 ML 300 MG IV (23:06)
[2020-11-28] MEDS: metroNIDAZOLE 500 MG/100 ML BAG 100 MG IV (23:06)
[2020-11-28 23:34] VITALS: O2SAT 94
[2020-11-29] MEDS: levoFLOXacin IV 750 MG/150 ML BAG 100 MG IV ×2 (00:50→22:35)
[2020-11-29 02:35] VITALS: O2SAT 94
[2020-11-29 05:23] VITALS: BP 126/87; PULSE 96; RESP 18; TEMP 36.5; O2SAT 96
[2020-11-29] MEDS: metroNIDAZOLE 500 MG/100 ML BAG 100 MG IV ×3 (05:27→21:02)
[2020-11-29] MEDS: Morphine 4 MG/ML Syringe IV (05:35)
[2020-11-29] MEDS: 0.9% Saline Lock 10 ML Syringe IV ×2 (05:36→05:44)
[2020-11-29] MEDS: Ondansetron 4 MG/2 ML Vial IV (05:44)
--- NOTE | 2020-11-29 05:55 | RAD_ITS ---
EXAM: XR Abdomen, 1 View CLINICAL INDICATION: 54 years old, Male; partial SBO TECHNIQUE: Frontal supine view of the abdomen/pelvis. This report was created using [employer] report generation technology. COMPARISON: None. FINDINGS: Lower thorax: No acute pathology. Gastrointestinal tract: Gas distended small bowel loops in the abdomen worrisome for a mechanical small bowel obstruction. Residual contrast in the colon. Organs: Residual contrast in the bladder. No organomegaly. No abnormal calcifications. Bones/joints: No acute pathology. Soft tissues: No acute pathology. Tubes, lines and devices: Enteric tube tip in the stomach. RAD/Abdomen Single View (Portable) IMPRESSION: 1. Enteric tube tip in the stomach. 2. Gas distended small bowel loops in the abdomen worrisome for a mechanical small bowel obstruction. Electronically Signed: Antony Drake MD at 6:49 EDT Tel , Service support ,
[2020-11-29 07:02] LABS: Absolute Lymphocyte Count 2.53 X10^3/uL (0.83-4.51); Absolute Neutrophil Count 7.2 X10^3/uL (2.0-7.7); Basophil# 0.06 X10^3/uL; Basophil% 0.5 % (0-1); Eosinophil# 0.14 X10^3/uL; Eosinophils% 1.3 % (0-5); Hematocrit 38.8 % (40-54); Hemoglobin 13.3 g/dL (13.0-16.5); Lymphocyte # 2.53 X10^3/ul (0.83-4.51); Lymphocyte % 23.2 % (19-41); Mean Corp Hgb Conc 34.3 g/dL (32-36); Mean Corpuscular Hgb 31.1 pg (27.0-32.0); Mean Corpuscular Volume 90.9 fL (80-94); Mean Platelet Vol. 9.8 fl (6.2-12.0); Monocyte# 0.96 X10^3/uL; Monocyte% 8.8 % (0-10); NRBC Flagged by Analyzer 0 % (0-5); Neutrophil # 7.17 X10^3/uL (2.7-7.7); Neutrophil % 65.7 % (47-70); Platelet Count 326 K/mm3 (150-450); RBC Distribution Width CV 13.8 % (11.6-14.6); Red Blood Count 4.27 M/mm3 (4.6-6.2); White Blood Count 10.9 K/mm3 (4.4-11.0)
[2020-11-29 07:28] LABS: ALB/GLOB Ratio 0.9 RATIO (0.9-2.4); AST(SGOT) 23 U/L (15-37); Alanine Aminotransfer ALT/SGPT 27 U/L (16-61); Albumin, Serum 3.2 g/dL (3.2-5.0); Alkaline Phosphatase 77 U/L (45-117); Anion Gap 8 (5-15); BUN 10 mg/dL (7-18); BUN/Creat Ratio 12.9 RATIO (10-20); Calcium,Total 8.1 mg/dL (8.5-10.1); Chloride 105 mmol/L (98-107); Creatinine, Serum 0.78 mg/dL (0.70-1.30); EST Glomerular Filtration Rate 109 mL/min (>60); Est Glom Filt Rate - Afr Amer 132 mL/min (>60); Estimated Creatinine Clearance 102.31 ml/min; Globulin 3.7 g/dL (2.2-4.2); Glucose 99 mg/dL (74-106); Potassium 3.4 mmol/L (3.5-5.1); Protein, Total 6.9 g/dL (6.4-8.2); Sodium Level 139 mmol/L (136-145)
[2020-11-29 08:41] VITALS: BP 116/76; PULSE 88; RESP 18; TEMP 36.8; O2SAT 98
[2020-11-29] MEDS: 0.9% Normal Saline 1,000 ML 125 ML IV ×2 (11:04→19:17)
[2020-11-29] MEDS: Famotidine 200 MG/20 ML MDV 20 MG in 0.9% Normal Saline (Pres. free 8 ML 300 MG IV ×2 (11:04→21:01)
--- NOTE | 2020-11-29 11:45 | CASEMGMT ---
RN GILDARDO Face to Face with patient for initial transition planning/care coordination assessment. RN CM introduced self and role at [facility]. Patient sitting in chair, alert and oriented, at bedside. Patient willing to participate in assessment and is able to answer all questions appropriately. Care providers, pharmacy, and demographics verified. Patient wishes to discharge home, denies need for home health at this time. Patient states he has no further needs or concerns at this time. CM to follow for discharge planning needs that may arise. PCP: No PCP, list provided to patient Specialists: none Preferred Pharmacy: [facility] Insurance: MMO Prescription Benefit: yes Living Will/HPOA: none LNOK: Living Arrangements: Patient lives with in a 2 story home. Patient states he is independent at home and able to ambulate stairs. Transportation: self, DME/HHC: Patient states he has crutches at home. Patient denies previous HHC Disposition Plan: Patient to discharge home with family support and follow-up plans in place. Melinda BARNES, RN, CM
--- NOTE | 2020-11-29 11:58 | CON.PCM.SX_ITS ---
Assessment & Plan Assessment/Plan (1) Partial obstruction of small intestine: PLAN: We will remove the NG tube. Have the patient should ambulate and see how he does over the next several hours clear liquids to be appropriate. White count is normal. No urgent surgical needs. HPI Consult Data Date of Consult: 11/29/20 HPI Narrative HPI Narrative: CARLOS DIEGO, is a 54 y/o M w/ PMHx: HLD who presents to the [facility] ED on 11/28/20 with history of eating the day prior with his at basal with onset at approximately 4 AM on day of presentation abdominal discomfort and dyspepsia with distention taking Tums and drinking water without marked improvement but able to eat breakfast consisting of sausage and gravy followed by at least 4 bowel movements during the day which he notes can be normal however his last 2 bowel moods were more soft and crumbly than normal and he had continuously worsening abdominal distention with decreased flatus rating his pain up to 10 out of 10, generalized across the belly and crampy in nature also prompting ED evaluation. His has been feeling well without any illness or self. He denies any recent fevers or chills prior. Work-up in the ED included T 99. 9, heart rate initially 104 with repeat 86, BP 134/88, respiratory rate 20, 99% on room air, CBC with WC 16.7, hemoglobin 15.9, platelets 390 with left shift, CMP unremarkable, lipase 91, urinalysis not marked appearing, CT abdomen and pelvis with fluid in the colon suggestive of diarrhea with mucosal thickening in the ileum suggesting ileitis causing a partial mechanical obstruction of the small bowel with oral contrast seen only to the level of the mid ileum. In the ED patient ministered Zofran, morphine and normal saline. Since being on the floor patient has been having flatus [facility] Medical History Cigar smoker GERD (gastroesophageal reflux disease) Hyperlipidemia Home Medications simvastatin 40 mg PO DAILY 09/29/18 [History Last Taken Unknown] Allergy/AdvReac Type Severity Reaction Status Date / Time Penicillins AdvReac Hives Verified 11/28/20 17:12 Family History Mother Hypertension Father Diabetes Surgical History No history of previous surgery Surgical History no surgical history Social History household members: spouse Smoking Status: Former smoker alcohol intake: current alcohol intake frequency: a few times a month substance use type: does not use ROS Constitutional Constitutional: Reports anorexia; Denies chills, fatigue or fever(s) Cardiovascular Cardiovascular: Denies chest pain Respiratory/Chest Respiratory/Chest: Denies cough Gastrointestinal Gastrointestinal: Reports abdominal pain and nausea; Denies rectal bleeding or vomiting Physical Exam Const alert, oriented x3 and no apparent distress General Appearance: cooperative HEENT normocephalic and head/scalp atraumatic Eyes PERRL Resp clear to auscultation bilaterally Cardio Rate: regular rate Rhythm: regular rhythm GI soft to palpation, non-tender and non-distended Lab / Micro Data Result Diagrams: 11/29/20 05:30 11/29/20 05:30 Labs: Laboratory Results - last 24 hr 11/28/20 17:54: WBC 16.7 H, RBC 5.15, Hgb 15.9, Hct 45.6, MCV 88.5, MCH 30.9, MC HC 34.9, RDW Std Deviation 43.8, RDW Coeff of Anabell 13.3, Plt Count 390, MPV 9.5, Immature Gran % (Auto) 0.500, Neut % (Auto) 69.3, Lymph % (Auto) 21.7, [place] % (Auto) 7.1, Eos % (Auto) 0.9, Baso % (Auto) 0.5, Absolute Neuts (auto) 11.6 H, Absolute Lymphs (auto) 3.63, Nucleated RBC % 0 11/28/20 17:54: Sodium 141, Potassium 3.7, Chloride 104, Carbon Dioxide 27.0, Anion Gap 10, BUN 13, Creatinine 1.02, Estim Creat Clear Calc 80.87, Est GFR (MDRD) Af Amer 97, Est GFR (MDRD) Non-Af 80, BUN/Creatinine Ratio 12.7, Glucose 100, Calcium 9.9, Total Bilirubin 0.70, AST 27, ALT 34, Alkaline Phosphatase 93, Total Protein 8.6 H, Albumin 4.3, Globulin 4.3 H, Albumin/Globulin Ratio 1.0, Lipase 91 11/28/20 17:54: Procalcitonin 0.07 11/28/20 17:56: Urine Color Yellow, Urine Clarity Clear, Urine pH 7.0, Ur Specific [place] 1.010, Urine Protein Negative, Urine Glucose (UA) Normal, Urine Ketones 15 H, Urine Occult Blood Negative, Urine Nitrite Negative, Urine Bilirubin Negative, Urine Urobilinogen Normal, Ur Leukocyte Esterase Negative, Urine RBC 0-5 SEEN, Urine WBC 0-5 SEEN, Ur Squamous Epith Cells 0 SEEN, Urine Bacteria 0 SEEN, Urine Mucus 0 SEEN 11/29/20 05:30: WBC 10.9, RBC 4.27 L, Hgb 13.3, Hct 38.8 L, MCV 90.9, MCH 31.1, MCHC 34.3, RDW Std Deviation 46.0 H, RDW Coeff of Anabell 13.8, Plt Count 326, MPV 9.8, Immature Gran % (Auto) 0.500, Neut % (Auto) 65.7, Lymph % (Auto) 23.2, [place] % (Auto) 8.8, Eos % (Auto) 1.3, Baso % (Auto) 0.5, Absolute Neuts (auto) 7.2, Absolute Lymphs (auto) 2.53, Nucleated RBC % 0 11/29/20 05:30: Sodium 139, Potassium 3.4 L, Chloride 105, Carbon Dioxide 26.0, Anion Gap 8, BUN 10, Creatinine 0.78, Estim Creat Clear Calc 102.31, Est GFR (MDRD) Af Amer 132, Est GFR (MDRD) Non-Af 109, BUN/Creatinine Ratio 12.9, Glucose 99, Calcium 8.1 L, Total Bilirubin 0.60, AST 23, ALT 27, Alkaline Phosphatase 77, Total Protein 6.9, Albumin 3.2, Globulin 3.7, Albumin/Globulin Ratio 0.9 Radiology Impression Abdomen/Pelvis CT 11/28/20 17:29 IMPRESSION: 1. There is fluid in the colon suggesting diarrhea. 2. Mucosal thickening in the ileum suggesting ileitis. This appears to be causing a partial mechanical obstruction of the small bowel with oral contrast seen only to the level of the mid ileum. X-ray follow-up may be helpful. Electronically Signed: Antony Drake MD at 20:32 EDT Tel , Service support , KUB X-Ray 11/28/20 21:58 IMPRESSION: Infiltrates in the lower lungs may be due to edema or pneumonia. Electronically Signed: Antony Drake MD at 23:02 EDT Tel , Service support , KUB X-Ray 11/29/20 05:55 IMPRESSION: 1. Enteric tube tip in the stomach. 2. Gas distended small bowel loops in the abdomen worrisome for a mechanical small bowel obstruction. Electronically Signed: Antony Drake MD at 6:49 EDT Tel , Service support ,
--- NOTE | 2020-11-29 12:35 | PCM.PN.HOSP ---
Subjective Subjective Follow-up on acute partial small bowel obstruction/ileitis: Patient was seen and examined. He complains of abdominal discomfort. Denies any nausea. NG tube in situ KUB this morning shows persistent small bowel obstruction Objective Data Objective Data Vital Signs: Vital Signs Temp Pulse Resp BP Pulse Ox 98.2 F 88 18 116/76 98 11/29/20 08:41 11/29/20 08:41 11/29/20 08:41 11/29/20 08:41 11/29/20 08:41 Oxygen Delivery Method Room Air Weight: 87.9 kg Body Mass Index (BMI) 28.4 Intake & Output: Intake and Output for Last 24 Hours 11/27/20 11/28/20 11/29/20 23:59 23:59 23:59 Intake Total 1012.08 / 1012.08 1732.92 / 1732.92 Output Total 350 / 350 Balance 1012.08 / 962.08 1382.92 / 1382.92 Lab / Micro Data Result Diagrams: 11/29/20 05:30 11/29/20 05:30 Labs: Laboratory Results - last 24 hr 11/28/20 17:54: WBC 16.7 H, RBC 5.15, Hgb 15.9, Hct 45.6, MCV 88.5, MCH 30.9, MCHC 34.9, RDW Std Deviation 43.8, RDW Coeff of Anabell 13.3, Plt Count 390, MPV 9.5, Immature Gran % (Auto) 0.500, Neut % (Auto) 69.3, Lymph % (Auto) 21.7, [place] % (Auto) 7.1, Eos % (Auto) 0.9, Baso % (Auto) 0.5, Absolute Neuts (auto) 11.6 H, Absolute Lymphs (auto) 3.63, Nucleated RBC % 0 11/28/20 17:54: Sodium 141, Potassium 3.7, Chloride 104, Carbon Dioxide 27.0, Anion Gap 10, BUN 13, Creatinine 1.02, Estim Creat Clear Calc 80.87, Est GFR (MDRD) Af Amer 97, Est GFR (MDRD) Non-Af 80, BUN/Creatinine Ratio 12.7, Glucose 100, Calcium 9.9, Total Bilirubin 0.70, AST 27, ALT 34, Alkaline Phosphatase 93, Total Protein 8.6 H, Albumin 4.3, Globulin 4.3 H, Albumin/Globulin Ratio 1.0, Lipase 91 11/28/20 17:54: Procalcitonin 0.07 11/28/20 17:56: Urine Color Yellow, Urine Clarity Clear, Urine pH 7.0, Ur Specific [place] 1.010, Urine Protein Negative, Urine Glucose (UA) Normal, Urine Ketones 15 H, Urine Occult Blood Negative, Urine Nitrite Negative, Urine Bilirubin Negative, Urine Urobilinogen Normal, Ur Leukocyte Esterase Negative, Urine RBC 0-5 SEEN, Urine WBC 0-5 SEEN, Ur Squamous Epith Cells 0 SEEN, Urine Bacteria 0 SEEN, Urine Mucus 0 SEEN 11/29/20 05:30: WBC 10.9, RBC 4.27 L, Hgb 13.3, Hct 38.8 L, MCV 90.9, MCH 31.1, MCHC 34.3, RDW Std Deviation 46.0 H, RDW Coeff of Anabell 13.8, Plt Count 326, MPV 9.8, Immature Gran % (Auto) 0.500, Neut % (Auto) 65.7, Lymph % (Auto) 23.2, [place] % (Auto) 8.8, Eos % (Auto) 1.3, Baso % (Auto) 0.5, Absolute Neuts (auto) 7.2, Absolute Lymphs (auto) 2.53, Nucleated RBC % 0 11/29/20 05:30: Sodium 139, Potassium 3.4 L, Chloride 105, Carbon Dioxide 26.0, Anion Gap 8, BUN 10, Creatinine 0.78, Estim Creat Clear Calc 102.31, Est GFR (MDRD) Af Amer 132, Est GFR (MDRD) Non-Af 109, BUN/Creatinine Ratio 12.9, Glucose 99, Calcium 8.1 L, Total Bilirubin 0.60, AST 23, ALT 27, Alkaline Phosphatase 77, Total Protein 6.9, Albumin 3.2, Globulin 3.7, Albumin/Globulin Ratio 0.9 Radiography Diagnostic Testing: Radiology Impression Abdomen/Pelvis CT 11/28/20 17:29 IMPRESSION: 1. There is fluid in the colon suggesting diarrhea. 2. Mucosal thickening in the ileum suggesting ileitis. This appears to be causing a partial mechanical obstruction of the small bowel with oral contrast seen only to the level of the mid ileum. X-ray follow-up may be helpful. Electronically Signed: Antony Drake MD at 20:32 EDT Tel , Service support , KUB X-Ray 11/28/20 21:58 IMPRESSION: Infiltrates in the lower lungs may be due to edema or pneumonia. Electronically Signed: Antony Drake MD at 23:02 EDT Tel , Service support , KUB X-Ray 11/29/20 05:55 IMPRESSION: 1. Enteric tube tip in the stomach. 2. Gas distended small bowel loops in the abdomen worrisome for a mechanical small bowel obstruction. Electronically Signed: Antony Drake MD at 6:49 EDT Tel , Service support , Physical Exam Narrative Physical exam: General: Alert, Oriented x3, Cooperative, No apparent distress, Well developed HEENT: Atraumatic, NG tube in situ Oral: Moist Mucosa Neck: Supple Lungs: Clear to auscultation Cardiovascular: HS I+II, regular, no murmurs Abdomen: Bowel Sounds Present, Soft, Non Tender, Extremities: No edema Assessment & Plan Assessment/Plan (1) Ileitis: (2) Partial obstruction of small intestine: PLAN: 1. Acute partial small bowel obstruction/ileitis, status post NG tube placement Continue with n.p.o. status, IV fluids, IV Levaquin and metronidazole Stool for C. difficile and enteric panel pending General surgery following 2. Hyperlipidemia, statins on hold 3. GERD, continue on IV famotidine 4. Nicotine dependence, advised to quit Charges/Coding Visit Charges Inpatient E&M: 92360 [facility] H[facility] L2
[2020-11-29 15:56] VITALS: BP 120/78; PULSE 78; RESP 18; TEMP 36.8; O2SAT 98
[2020-11-29] MEDS: Acetaminophen 325 MG Tablet 650 MG PO (17:26)
--- NOTE | 2020-11-29 19:00 | PCS.PANDOC ---
PANDEMIC DOCUMENTATION INITIATED: Date: 09/20/2020 Time: 190 Emergency documentation initiated 11/29/20 @ 1900
[2020-11-29 20:58] VITALS: BP 117/81; PULSE 75; RESP 16; TEMP 36.8; O2SAT 98
[2020-11-30 03:20] VITALS: BP 114/79; PULSE 80; RESP 18; TEMP 36.7; O2SAT 97
[2020-11-30 05:26] LABS: Absolute Lymphocyte Count 2.35 X10^3/uL (0.83-4.51); Absolute Neutrophil Count 3.2 X10^3/uL (2.0-7.7); Basophil# 0.06 X10^3/uL; Basophil% 0.9 % (0-1); Eosinophil# 0.31 X10^3/uL; Eosinophils% 4.6 % (0-5); Hematocrit 36.4 % (40-54); Hemoglobin 12.6 g/dL (13.0-16.5); Lymphocyte # 2.35 X10^3/ul (0.83-4.51); Lymphocyte % 35.2 % (19-41); Mean Corp Hgb Conc 34.6 g/dL (32-36); Mean Corpuscular Hgb 31.2 pg (27.0-32.0); Mean Corpuscular Volume 90.1 fL (80-94); Mean Platelet Vol. 9.3 fl (6.2-12.0); Monocyte% 10.5 % (0-10); NRBC Flagged by Analyzer 0 % (0-5); Neutrophil # 3.23 X10^3/uL (2.7-7.7); Neutrophil % 48.5 % (47-70); Platelet Count 281 K/mm3 (150-450); RBC Distribution Width CV 13.8 % (11.6-14.6); RBC Distribution Width SD 45.9 fl (35.1-43.9); Red Blood Count 4.04 M/mm3 (4.6-6.2); White Blood Count 6.7 K/mm3 (4.4-11.0)
[2020-11-30] MEDS: 0.9% Normal Saline 1,000 ML 125 ML IV (05:41)
[2020-11-30] MEDS: metroNIDAZOLE 500 MG/100 ML BAG 100 MG IV ×3 (05:41→21:26)
[2020-11-30 05:53] LABS: ALB/GLOB Ratio 0.9 RATIO (0.9-2.4); AST(SGOT) 18 U/L (15-37); Alanine Aminotransfer ALT/SGPT 24 U/L (16-61); Alkaline Phosphatase 62 U/L (45-117); Anion Gap 7 (5-15); BUN 8 mg/dL (7-18); BUN/Creat Ratio 10.1 RATIO (10-20); Calcium,Total 8.2 mg/dL (8.5-10.1); Chloride 107 mmol/L (98-107); Creatinine, Serum 0.79 mg/dL (0.70-1.30); EST Glomerular Filtration Rate 108 mL/min (>60); Est Glom Filt Rate - Afr Amer 130 mL/min (>60); Estimated Creatinine Clearance 101.01 ml/min; Globulin 3.5 g/dL (2.2-4.2); Glucose 91 mg/dL (74-106); Potassium 3.7 mmol/L (3.5-5.1); Protein, Total 6.5 g/dL (6.4-8.2); Sodium Level 140 mmol/L (136-145)
[2020-11-30 08:22] VITALS: BP 120/78; PULSE 74; RESP 18; TEMP 36.8; O2SAT 98
[2020-11-30] MEDS: 0.9% Saline Lock 10 ML Syringe IV (09:33)
[2020-11-30] MEDS: Famotidine 200 MG/20 ML MDV 20 MG in 0.9% Normal Saline (Pres. free 8 ML 300 MG IV ×2 (09:33→21:26)
--- NOTE | 2020-11-30 10:53 | PN.SURG_ITS ---
Subjective Subjective Patient states having flatus and bowel movements Objective Data Objective Data Abdomen is soft Vital Signs: Vital Signs Temp Pulse Resp BP Pulse Ox 98.3 F 74 18 120/78 98 11/30/20 08:22 11/30/20 08:22 11/30/20 08:22 11/30/20 08:22 11/30/20 08:22 Oxygen Delivery Method Room Air Weight: 192 lb 14.472 oz Body Mass Index (BMI) 28.4 Intake & Output: Intake and Output for Last 24 Hours 11/28/20 11/29/20 11/30/20 23:59 23:59 23:59 Intake Total 1012.08 / 1012.08 2942.92 / 2942.92 1260 / 1260 Output Total 350 / 350 Balance 1012.08 / 962.08 2592.92 / 2592.92 1260 / 1260 Lab / Micro Data Result Diagrams: 11/30/20 05:08 11/30/20 05:08 Labs: Laboratory Results - last 24 hr 11/30/20 05:08: WBC 6.7, RBC 4.04 L, Hgb 12.6 L, Hct 36.4 L, MCV 90.1, MCH 31.2, MCHC 34.6, RDW Std Deviation 45.9 H, RDW Coeff of Anabell 13.8, Plt Count 281, MPV 9.3, Immature Gran % (Auto) 0.300, Neut % (Auto) 48.5, Lymph % (Auto) 35.2, Wallace % (Auto) 10.5 H, Eos % (Auto) 4.6, Baso % (Auto) 0.9, Absolute Neuts (auto) 3.2, Absolute Lymphs (auto) 2.35, Nucleated RBC % 0 11/30/20 05:08: Sodium 140, Potassium 3.7, Chloride 107, Carbon Dioxide 26.0, Anion Gap 7, BUN 8, Creatinine 0.79, Estim Creat Clear Calc 101.01, Est GFR (MDRD) Af Amer 130, Est GFR (MDRD) Non-Af 108, BUN/Creatinine Ratio 10.1, Glucose 91, Calcium 8.2 L, Total Bilirubin 0.70, AST 18, ALT 24, Alkaline Phosphatase 62, Total Protein 6.5, Albumin 3.0 L, Globulin 3.5, Albumin/Globulin Ratio 0.9 Assessment & Plan Assessment/Plan (1) Partial obstruction of small intestine: PLAN: Okay to advance diet and discharge today.
--- NOTE | 2020-11-30 11:41 | PCM.PN.HOSP ---
Subjective Subjective Follow-up on acute partial small bowel obstruction/ileitis: Patient seen and examined. He has been passing gas. Has not had a bowel movement. He denied any nausea or vomiting. NG tube was removed. He has been started on clear liquid diet. This was explained to him at the bedside with the . All questions answered. Objective Data Objective Data Vital Signs: Vital Signs Temp Pulse Resp BP Pulse Ox 98.3 F 74 18 120/78 98 11/30/20 08:22 11/30/20 08:22 11/30/20 08:22 11/30/20 08:22 11/30/20 08:22 Oxygen Delivery Method Room Air Weight: 87.5 kg Body Mass Index (BMI) 28.4 Intake & Output: Intake and Output for Last 24 Hours 11/28/20 11/29/20 11/30/20 23:59 23:59 23:59 Intake Total 1012.08 / 1012.08 2942.92 / 2942.92 1260 / 1260 Output Total 350 / 350 Balance 1012.08 / 962.08 2592.92 / 2592.92 1260 / 1260 Lab / Micro Data Result Diagrams: 11/30/20 05:08 11/30/20 05:08 Labs: Laboratory Results - last 24 hr 11/30/20 05:08: WBC 6.7, RBC 4.04 L, Hgb 12.6 L, Hct 36.4 L, MCV 90.1, MCH 31.2, MCHC 34.6, RDW Std Deviation 45.9 H, RDW Coeff of Anabell 13.8, Plt Count 281, MPV 9.3, Immature Gran % (Auto) 0.300, Neut % (Auto) 48.5, Lymph % (Auto) 35.2, Collier % (Auto) 10.5 H, Eos % (Auto) 4.6, Baso % (Auto) 0.9, Absolute Neuts (auto) 3.2, Absolute Lymphs (auto) 2.35, Nucleated RBC % 0 11/30/20 05:08: Sodium 140, Potassium 3.7, Chloride 107, Carbon Dioxide 26.0, Anion Gap 7, BUN 8, Creatinine 0.79, Estim Creat Clear Calc 101.01, Est GFR (MDRD) Af Amer 130, Est GFR (MDRD) Non-Af 108, BUN/Creatinine Ratio 10.1, Glucose 91, Calcium 8.2 L, Total Bilirubin 0.70, AST 18, ALT 24, Alkaline Phosphatase 62, Total Protein 6.5, Albumin 3.0 L, Globulin 3.5, Albumin/Globulin Ratio 0.9 Physical Exam Narrative Physical exam: General: Alert, Oriented x3, Cooperative, no apparent distress, well developed HEENT: Atraumatic Oral: Moist Mucosa Neck: Supple Lungs: Clear to auscultation Cardiovascular: HS I+II, regular, no murmurs Abdomen: Bowel Sounds Present, Soft, Non Tender, Extremities: No edema Assessment & Plan Assessment/Plan (1) Ileitis: (2) Partial obstruction of small intestine: PLAN: 1. Acute partial small bowel obstruction/ileitis, improved Continue on clear liquid diet, advance diet as tolerated Continue on IV Levaquin and metronidazole Stool for C. difficile and enteric panel pending -patient has not had a bowel movement since admission General surgery following 2. Hyperlipidemia, statins on hold 3. GERD, continue on IV famotidine 4. Nicotine dependence, advised to quit Will discharge tomorrow. Charges/Coding Visit Charges Inpatient E&M: 67657 Subs Hosp L2
[2020-11-30 17:08] VITALS: BP 124/88; PULSE 70; RESP 18; TEMP 37; O2SAT 98
[2020-11-30 20:26] VITALS: BP 115/77; PULSE 75; RESP 16; TEMP 37.1; O2SAT 98
[2020-11-30] MEDS: Acetaminophen 325 MG Tablet 650 MG PO (22:08)
[2020-11-30] MEDS: levoFLOXacin IV 750 MG/150 ML BAG 100 MG IV (22:38)
[2020-12-01 04:50] VITALS: BP 117/82; PULSE 70; RESP 18; TEMP 36.6; O2SAT 96
[2020-12-01] MEDS: metroNIDAZOLE 500 MG/100 ML BAG 100 MG IV (06:04)
[2020-12-01 07:56] VITALS: O2SAT 93
[2020-12-01 08:00] VITALS: BP 127/92; PULSE 67; RESP 16; TEMP 36.2; O2SAT 97
--- NOTE | 2020-12-01 08:02 | PCM.DC ---
Discharge Instructions Diet Discharge Diet: - (Continue on full liquid diet for couple of days and advance to regular diet as tolerated) Activity Discharge Activity: Return to Normal Activity Follow Up Care Test Results: Test results from this visit will be discussed in further detail at your follow-up appointment, if applicable. Discharge Plan Admission Admit Date/Time: 11/28/20 20:55 Primary Reason for Your Visit: Acute small bowel obstruction Attending Provider: Ruth Reyna Primary Care Provider: Care Physician,No Primary Consulting Providers: Roge Oviedo Instructions Additional Instructions / Restrictions: Continue to keep yourself hydrated. Complete your antibiotics. Continue on a full liquid diet and advance to a regular diet as tolerated. Follow-up with general surgery within 2 weeks. Discharge Orders/Prescriptions Prescriptions: New levofloxacin 750 mg tablet 750 mg PO DAILY 3 Days Qty: 3 RF: 0 metronidazole 500 mg tablet 500 mg PO TID 3 Days Qty: 9 RF: 0 Continued simvastatin 40 MG tablet 40 mg PO DAILY RF: 0 Referrals / Follow Up: Care Physician,No Primary [Primary Care Provider] - Within 2 Weeks Roge Oviedo MD [STAFF PHYSICIAN] - Within 2 Weeks Disposition Disposition (needs filled in before D/C Order can be placed): Home, Self Care
--- NOTE | 2020-12-02 08:47 | PCM.DC.SUM ---
Providers Date of Admission: 11/28/20 Date of Discharge: 12/03/20 Primary Care Physician: Marissa Primary Care Phys Consultations 11/28/20 22:47 Consult: General Surgery Routine Consulting Provider: Roge Oviedo Reason for Consult: Ileitis, partial SBO EMERGENT Consult: No MD Notified: Yes Date Notified: 11/28/20 Time Notified: 20:56 Method of Notification: cortext Reason For Visit: ILEITUS, PARTIAL SBO Diagnosis Discharge Diagnosis (1) Ileitis: Status: Acute Code(s): K52.9 - Noninfective gastroenteritis and colitis, unspecified (2) Partial obstruction of small intestine: Status: Acute Code(s): K56.600 - Partial intestinal obstruction, unspecified as to cause Medications at Discharge Home Medications simvastatin 40 mg PO DAILY 09/29/18 levofloxacin 750 mg PO DAILY 3 Days #3 tab 12/01/20 metronidazole 500 mg PO TID 3 Days #9 tab 12/01/20 Hospital Course Operations None Procedures None Summary of Care Provided Minutes Spent on Discharge: 45 Hospital Course: 54-year-old male with past medical history of hyperlipidemia who presented with abdominal discomfort and distention. Patient had gone out with his to eat in a restaurant the night before and subsequently had abdominal discomfort. He tried taking Tums and drinking water without improvement. He had about 4 bowel movements the next day. It was watery. Nonbloody. He noticed also that he was having worsening abdominal distention with decreased flatus and increased pain that was described as cramps 10 out of 10. Patient was brought to the ED. CT of the abdomen and pelvis was suggestive of diarrhea with mucosal thickening in the ileum; ileitis and partial mechanical obstruction of the small bowel with oral contrast seen only to the level of the mid ileum. Patient was admitted to [facility] floor and managed conservatively. He was kept n.p.o., NG tube placed. Patient did not have any more episodes of diarrhea. He was also started on IV Flagyl and Levaquin. General surgery were consulted and followed with patient. Patient continue to improve and had NG tube removed. He had multiple flatus and did he was started on a full liquid diet with no issues. He was discharged to complete 7 days of Levaquin and Flagyl. He was asked to follow-up with primary care doctor and general surgery in the outpatient. Physical Exam Narrative Physical exam: General: Alert, Oriented x3, Cooperative, no apparent distress, well developed HEENT: Atraumatic Oral: Moist Mucosa Neck: Supple Lungs: Clear to auscultation Cardiovascular: HS I+II, regular, no murmurs Abdomen: Bowel Sounds Present, Soft, Non Tender, Extremities: No edema Weight / BMI Weight Weight: 88.1 kg Body Mass Index (BMI) 28.4 ABG / Lab / Microbiology Data Result Diagrams: 11/30/20 05:08 11/30/20 05:08 D/C Instructions Discharge Diet: - (Continue on full liquid diet for couple of days and advance to regular diet as tolerated) Meaningful Use Info Meaningful Use Diagnoses (Choose all that apply): None applicable Discharge Plan Admission Admit Date/Time: 11/28/20 20:55 Primary Reason for Your Visit: Acute small bowel obstruction Attending Provider: Ruth Reyna Primary Care Provider: Care Physician,No Primary Consulting Providers: Roge Oviedo Instructions Additional Instructions / Restrictions: Continue to keep yourself hydrated. Complete your antibiotics. Continue on a full liquid diet and advance to a regular diet as tolerated. Follow-up with general surgery within 2 weeks. Discharge Orders/Prescriptions Prescriptions: New levofloxacin 750 mg tablet 750 mg PO DAILY 3 Days Qty: 3 RF: 0 metronidazole 500 mg tablet 500 mg PO TID 3 Days Qty: 9 RF: 0 Continued simvastatin 40 MG tablet 40 mg PO DAILY RF: 0 Referrals / Follow Up: Roge Oviedo MD [STAFF PHYSICIAN] - Within 2 Weeks Care Physician,No Primary [Primary Care Provider] - Within 2 Weeks Disposition Disposition (needs filled in before D/C Order can be placed): Home, Self Care Charges/Coding Visit Charges Inpatient E&M: 35968 Disch Hosp
== END 2020-12-01 10:25 | disposition home or self-care (01) | DRG 390 ==
LOC: ED 20:47 → MS3 21:07
PROVIDERS: Admitting Provider Family Medicine; Emergency Provider Emergency Medicine; Visit Provider Internal Medicine
DX: K56.600 Partial intestinal obstruction, unspecified as to cause (principal); K52.9 Noninfective gastroenteritis and colitis, unspecified; E78.5 Hyperlipidemia, unspecified; K21.9 Gastro-esophageal reflux disease without esophagitis; F17.290 Nicotine dependence, other tobacco product, uncomplicated; Z79.899 Other long term (current) drug therapy
CPT/HCPCS: 36415; 74018; 74177; 80053; 81001; 83690; 84145; 85025; 99251; 99285; J7030; Q9967; A4216; G0463; J2405; J3490

== ENCOUNTER 2024-11-14 16:38 | Emergency (ER) | payer OTHER, SELFPAY ==
[2024-11-14 16:38] VITALS: BP 121/87; PULSE 83; RESP 16; TEMP 36.8; O2SAT 99; BMI 23.3
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
[2024-11-14] MEDS: 0.9% Normal Saline (1000mL) 1,000 ML 999 ML IV (17:48)
[2024-11-14 18:04] LABS: Mucous, Urine 0 SEEN /hpf (<or=2+); Squamous Epithelial Cells - UA 0 SEEN /hpf (0-5)
[2024-11-14 18:08] LABS: Hematocrit 41.9 % (40-54); Hemoglobin 13.9 g/dL (13.0-16.5); Immature Granulocytes Count 0.020 X10^3/uL (0.0-0.0); Mean Corp Hgb Conc 33.2 g/dL (32-36); Mean Corpuscular Volume 91.7 fL (80-94); Mean Platelet Vol. 9.7 fl (6.2-12.0); NRBC Flagged by Analyzer 0 % (0-5); Platelet Count 328 K/mm3 (150-450); RBC Distribution Width CV 13.0 % (11.6-14.6); RBC Distribution Width SD 43.8 fl (35.1-43.9); Red Blood Count 4.57 M/mm3 (4.6-6.2); White Blood Count 8.0 K/mm3 (4.4-11.0)
[2024-11-14 18:12] LABS: Color, Urine Yellow (Yellow); Glucose, Dipstick Normal (Normal); Ketone-Dipstick Negative (Negative); Leukocyte Esterase-Dipstick Negative /ul (Negative); Nitrite-Dipstick Negative (Negative); Occult Blood-Urine Negative /ul (Negative); Protein-Dipstick Negative (Negative); Specific Gravity, Urine 1.020 (1.002-1.030); Urine Bilirubin Dipstick Negative (Negative)
[2024-11-14 18:43] LABS: AST(SGOT) 22 U/L (<=37); Alanine Aminotransfer ALT/SGPT 15 U/L (<=46); Albumin, Serum 4.4 g/dL (3.4-4.8); Alkaline Phosphatase 79 U/L (40-129); Anion Gap 8 (5-15); BUN 12 mg/dL (4-19); BUN/Creat Ratio 12.0 RATIO (10-20); Bilirubin, Direct 0.10 mg/dL (0.00-0.30); Calcium,Total 9.1 mg/dL (7.6-11.0); Carbon Dioxide 28.1 mmol/L (21.0-32.0); Chloride 104 mmol/L (98-108); Estimated Creatinine Clearance 80.99 ml/min (50-250); Globulin 2.8 g/dL (2.2-4.2); Glucose 83 mg/dL (70-99); Potassium 4.3 mmol/L (3.3-5.1)
[2024-11-14 18:47] VITALS: BP 123/77; PULSE 73; RESP 18; O2SAT 100
[2024-11-14] MEDS: Ketorolac 30 MG/ML Syringe IV (19:24)
[2024-11-14 20:00] VITALS: BP 132/81; PULSE 61; RESP 16; O2SAT 99
[2024-11-14 20:07] VITALS: BP 132/81; PULSE 61; RESP 16; TEMP 36.8; O2SAT 99
[2024-11-14 20:50] LABS: Red Blood Cells-Urine 0-5 SEEN /hpf (0-5)
== END 2024-11-14 20:09 | disposition home or self-care (01) ==
PROVIDERS: Emergency Provider Emergency Medicine; PCP Family Medicine; Visit Provider Emergency Medicine
DX: S22.41XA Multiple fractures of ribs, right side, initial encounter for closed fracture (principal); M54.9 Dorsalgia, unspecified; R11.0 Nausea; V43.93XA Unspecified car occupant injured in collision with pick-up truck in traffic accident, initial encounter; R51.9 Headache, unspecified; R20.2 Paresthesia of skin; E78.5 Hyperlipidemia, unspecified; K21.9 Gastro-esophageal reflux disease without esophagitis; F17.290 Nicotine dependence, other tobacco product, uncomplicated; Z79.899 Other long term (current) drug therapy
CPT/HCPCS: 70450; 70498; 71260; 74177; 80048; 80076; 81001; 85025; 93005; 96361; 96374; 96375; 99283; Q9967; A4216; J2405